=== PATIENT | female | born 1985 | race African-American/Black ===

== ENCOUNTER 2024-11-23 20:44 | Emergency (ER) | payer OTHER ==
[~2024-11-23] VITALS: Ht 157.5 cm; Wt 68.0 kg
[2024-11-23 21:06] VITALS: RESP 18; O2SAT 98
[2024-11-23 22:10] LABS: CLARITY URINE CLEAR (CLEAR); COLOR URINE DARK YELLOW (YELLOW); GLUCOSE URINE NEGATIVE (NEGATIVE); KETONES URINE TRACE (NEGATIVE); LEUKOCYTE ESTERASE URINE TRACE (NEGATIVE); NITRITE URINE NEGATIVE (NEGATIVE); OCCULT BLOOD URINE NEGATIVE (NEGATIVE); PROTEIN URINE NEGATIVE (NEGATIVE)
[2024-11-23 22:28] LABS: RBC URINE NONE SEEN /hpf (0-2); WBC URINE 0-2 /hpf (0-2)
[2024-11-23 22:29] LABS: BACTERIA URINE TRACE; SQUAMOUS EPITHELIAL CELL URINE RARE /lpf (RARE/1+)
[2024-11-23] MEDS ORDERED: AMOX500T2 MT (23:47)
[2024-11-24] MEDS: ACETAMINOPHEN 500MG TABLET PO ONE (00:32)
[2024-11-24 00:34] VITALS: BP 109/73; PULSE 65; TEMP 36.8; O2SAT 100
== END 2024-11-24 00:37 | disposition home or self-care (01) ==
LOC: ER 20:44
DX: H66.93 Otitis media, unspecified, bilateral (principal); R31.9 Hematuria, unspecified; Z79.899 Other long term (current) drug therapy
CPT/HCPCS: 81003; 81025; 99283